=== PATIENT | female | born 1965 | race African-American/Black ===

== ENCOUNTER 2018-12-25 17:57 | Emergency (ER) | payer OTHER ==
[~2018-12-25] VITALS: Ht 165.1 cm; Wt 65.0 kg
[~2018-12-25 17:57] MED LIST: ACET-1757 PO; ALPR0.5T10 PO; BISA10SU13 PR; CARI350T PO; CETI10TA32 PO; CIPR500T87 PO; CITA20TA9 PO; DIVA500T2 PO; DIVA500T4 PO; DOCU-131 PO; FENT1PAT77 TD; GABA600T7 PO; HYDR12.517 PO; LANTUS INJ; LEVO100T PO; LISI-170 PO; LORA-446 PO; MAG355OR14 PO; MAGN400O7 PO; METO10TA82 PO; METO5TAB57 PO; MORP30TA3 PO; MORP30TA81 PO; MULT-108 PO; NICO-586 TD; NOVOLOG INJ; OLME40TA12 PO; OXYC5CAP2 PO; OXYC5TAB3 PO; POTA10TA6 PO; PRAZ1CAP2 PO; PREG150C PO; PROM25AM6 IM; RANI150C PO; SENN1TAB27 PO
[2018-12-25] MEDS ORDERED: PROMETHAZINE 25 MG/ML, 1ML IM ONE (19:00)
[2018-12-25] MEDS ORDERED: ONDANSETRON 2MG/ML, 2ML IVPush ONE (19:00)
[2018-12-25] MEDS ORDERED: SODIUM CHLORIDE 0.9% 1,000ML IVBOLUS ONE (19:00)
--- NOTE | 2018-12-25 19:02 | NUR ---
ATTEMPTED IV X2 UNSUCCESSFUL. PT STILL VOMITING. MD ASSESSING PT REPORT GIVEN TO ONCOMING RN.
[2018-12-25 19:14] LABS: BASOPHILS % (AUTO) 0 % (0-1); EOSINOPHILS % (AUTO) 0 % (1-7); LYMPHOCYTES # (AUTO) 0.97 x10^3/uL (1-3.4); LYMPHOCYTES % (AUTO) 8 % (22-44); MD NO; MEAN CORPUSCULAR HEMOGLOBIN 29.4 pg (27.0-34.8); MEAN CORPUSCULAR HGB CONC 32.9 g/dL (32.4-35.8); MEAN CORPUSCULAR VOLUME 89.6 fL (80-100); MEAN PLATELET VOLUME 8.9 fL (7.4-10.4); MONOCYTES # (AUTO) 0.21 x10^3/uL (0.2-0.8); MONOCYTES % (AUTO) 2 % (2-9); NEUTROPHILS # (AUTO) 11.02 x10^3/uL (1.8-6.8); NEUTROPHILS % (AUTO) 90 % (42-75); PLATELET COUNT 407 x10^3/uL (130-400); RED BLOOD COUNT 4.56 x10^6/uL (3.82-5.3); RED CELL DISTRIBUTION WIDTH 14.4 % (9.6-15.2)
[2018-12-25] MEDS ORDERED: ONDANSETRON 2MG/ML, 2ML ONE (19:20)
[2018-12-25] MEDS ORDERED: PROMETHAZINE 25 MG/ML, 1ML ONE (19:20)
[2018-12-25 19:25] LABS: ALANINE AMINOTRANSFERASE 19 U/L (12-78); ALBUMIN 3.8 g/dL (3.4-5.0); CALCIUM 9.8 mg/dL (8.5-10.1)
[2018-12-25 19:27] LABS: ALKALINE PHOSPHATASE 82 U/L (45-117); BILIRUBIN,TOTAL 0.4 mg/dL (0.2-1.0); TOTAL PROTEIN 8.4 g/dL (6.4-8.2)
[2018-12-25 19:33] LABS: ANION GAP 12 mmol/L (5-15); CHLORIDE 108 mmol/L (98-107)
[2018-12-25] MEDS ORDERED: morphine SULFATE 10 MG/ML, 1ML IVPush ONE (20:00)
[2018-12-25] MEDS ORDERED: MORPHINE SULFATE 4 MG/ML, 1ML ONE (20:26)
[2018-12-25 20:54] LABS: MICROSCOPIC AUTO
[2018-12-25 20:55] LABS: CULTURE INDICATED? NO
--- NOTE | 2018-12-25 21:00 | NUR ---
AT BEDSIDE, PT RESTING
[2018-12-25] MEDS ORDERED: DICYCLOMINE 10 MG/ML, 2ML IM ONE (21:30)
[2018-12-25] MEDS ORDERED: DICYCLOMINE 10 MG/ML, 2ML ONE (21:42)
--- NOTE | 2018-12-25 22:00 | NUR ---
PT GIVEN PO CHALLENGE
[2018-12-25] MEDS ORDERED: POTASSIUM CHLORIDE 20 MEQ TAB.ER.PRT ONE ×2 (22:15→22:19)
[2018-12-25] MEDS ORDERED: METOCLOPRAMIDE 5 MG/ML, 2ML IVPush ONE (22:30)
[2018-12-25] MEDS ORDERED: POTASSIUM CHLORIDE 20 MEQ TAB.ER.PRT PO ONE (22:30)
[2018-12-25] MEDS ORDERED: METOCLOPRAMIDE 5 MG/ML, 2ML ONE (22:35)
--- NOTE | 2018-12-25 22:42 | NUR ---
PT MEDICATED, STILL REQUESTING PAIN MEDS. PO CHALLENGE SUCCESSFUL Addendum: 12/25/18 at 2243 by CANDE PT VOMITING
[2018-12-25] MEDS ORDERED: OXYcodone/APAP 5/325MG TABLET PO ONE (23:30)
[2018-12-25] MEDS ORDERED: OMNIPAQUE 350 MG/ML, 100ML BOTTLE ONE (23:31)
[2018-12-25] MEDS ORDERED: OXYcodone/APAP 5/325MG TABLET ONE (23:32)
[2018-12-26 00:14] VITALS: BP 123/65
== END 2018-12-26 00:18 | disposition home or self-care (01) ==
LOC: ED 18:35
DX: F11.23 Opioid dependence with withdrawal (principal); T40.2X5A Adverse effect of other opioids, initial encounter; E86.0 Dehydration; E87.6 Hypokalemia; R10.84 Generalized abdominal pain; R10.31 Right lower quadrant pain; R10.32 Left lower quadrant pain; Y92.89 Other specified places as the place of occurrence of the external cause
CPT/HCPCS: 36415; 74177; 80053; 81001; 83690; 85025; 93005; 96361; 96372; 96374; 96375; 99284; J0500; J2270; J2405; J2550; J2765; J7030; Q9967

== ENCOUNTER 2019-01-26 16:29 | Inpatient (IN) | payer OTHER ==
[~2019-01-26] VITALS: Ht 165.1 cm; Wt 60.2 kg
[2019-01-26 11:05] VITALS: BP 197/111
[2019-01-26] MEDS ORDERED: LORazepam 2 MG/ML, 1ML IVPush ONE (17:30)
[2019-01-26] MEDS ORDERED: SODIUM CHLORIDE 0.9% 1,000ML IVBOLUS ONE (17:30)
[2019-01-26] MEDS ORDERED: ONDANSETRON 2MG/ML, 2ML IVPush ONE (17:30)
--- NOTE | 2019-01-26 17:30 | NUR ---
MULTIPLE FAILED ATTEMPTS TO GAIN IV ACCESS. DR. PURI NOTIFIED. WILL GIVE IM ATIVAN FOR NAUSEA AND ANXIETY THEN TRY PO HYDRATION.
[2019-01-26] MEDS ORDERED: LORazepam 2 MG/ML, 1ML ONE (17:50)
[2019-01-26 17:57] LABS: PH, VENOUS 7.528 pH (7.320-7.420)
[2019-01-26] MEDS ORDERED: LORazepam 2 MG/ML, 1ML IM ONE (18:00)
[2019-01-26 18:03] LABS: O2 FLOW ROOM AIR L/min
[2019-01-26 18:18] LABS: ALANINE AMINOTRANSFERASE 16 U/L (12-78); ALBUMIN 4.4 g/dL (3.4-5.0); ANION GAP 11 mmol/L (5-15); CALCIUM 10.4 mg/dL (8.5-10.1); CHLORIDE 102 mmol/L (98-107)
[2019-01-26 18:21] LABS: ALKALINE PHOSPHATASE 107 U/L (45-117); BILIRUBIN,TOTAL 1.1 mg/dL (0.2-1.0); CREATININE 1.34 mg/dL (0.55-1.02); TOTAL PROTEIN 9.6 g/dL (6.4-8.2)
[2019-01-26 18:22] LABS: BILIRUBIN, DIRECT 0.2 mg/dL (0.1-0.2); BILIRUBIN,INDIRECT 0.9 mg/dL (0.0-2.0)
[2019-01-26 18:24] LABS: BASOPHILS # (AUTO) 0.02 x10^3/uL (0-0.1); BASOPHILS % (AUTO) 0 % (0-1); EOSINOPHILS # (AUTO) 0.04 x10^3/uL (0-0.4); EOSINOPHILS % (AUTO) 0 % (1-7); LYMPHOCYTES # (AUTO) 0.98 x10^3/uL (1-3.4); LYMPHOCYTES % (AUTO) 6 % (22-44); MD NO; MEAN CORPUSCULAR HEMOGLOBIN 29.2 pg (27.0-34.8); MEAN CORPUSCULAR HGB CONC 32.8 g/dL (32.4-35.8); MEAN CORPUSCULAR VOLUME 88.8 fL (80-100); MEAN PLATELET VOLUME 8.6 fL (7.4-10.4); MONOCYTES # (AUTO) 0.46 x10^3/uL (0.2-0.8); MONOCYTES % (AUTO) 3 % (2-9); NEUTROPHILS # (AUTO) 14.74 x10^3/uL (1.8-6.8); NEUTROPHILS % (AUTO) 91 % (42-75); PLATELET COUNT 366 x10^3/uL (130-400); RED BLOOD COUNT 4.73 x10^6/uL (3.82-5.3); RED CELL DISTRIBUTION WIDTH 13.1 % (9.6-15.2)
[2019-01-26] MEDS ORDERED: INSULIN REGULAR 100 UNITS/ML, 3ML VIAL SQ-INSULIN ONE (19:00)
[2019-01-26 19:02] LABS: ACETONE, SERUM Moderate(40mg/dL) mg/dL (Negative)
[2019-01-26] MEDS ORDERED: PROMETHAZINE 25 MG/ML, 1ML ONE (19:10)
[2019-01-26] MEDS ORDERED: INSULIN LISPRO 100 UNITS/ML, PEN ONE (19:12)
--- NOTE | 2019-01-26 19:23 | NUR ---
PT VOMITTING ALL OVER FLOOR AT THIS TIME AFTER DRINKING [place].
[2019-01-26] MEDS ORDERED: PROMETHAZINE 25 MG/ML, 1ML IM ONE (19:30)
--- NOTE | 2019-01-26 19:36 | NUR ---
TASK RN: PT RESTING IN RNEY W/ EYES CLOSED. EVEN/REGULAR RESPIRATIONS NOTED. PT ARROUSABLE TO LIGHT PHYSICAL STIM. SPO2 MONITORING PLACED. SPO2 >90% ON RA.
[2019-01-26] MEDS ORDERED: LIDOCAINE-MPF 1%, 5ML ONE (20:27)
[2019-01-26] MEDS ORDERED: ONDANSETRON 2MG/ML, 2ML ONE (20:28)
--- NOTE | 2019-01-26 20:43 | NUR ---
IO PLACED IN PT'S LEFT HUMEROUS DUE TO INABILITY TO OBTAIN PIV, LIDOCAINE USED TO FLUSH. PT SEEMED TO TOLERATE WELL. IV FLUIDS INFUSING WITH PRESSURE BAG.
[2019-01-26] MEDS ORDERED: HYDROmorphone 1 MG/ML, 1ML AMP ONE (21:16)
--- NOTE | 2019-01-26 21:24 | NUR ---
PT CONT TO DRINK FROM THE SINK AND PUT HER FINGERS DOWN HER THROAT TO INDUCE VOMITTING. PT VOMITED ALL OVER FLOOR NEXT TO ARIANE.
[2019-01-26] MEDS ORDERED: HYDROmorphone 2 MG/ML, 1ML IVPush ONE (21:30)
[2019-01-26] MEDS ORDERED: POTASSIUM CHLORIDE 20 MEQ in SODIUM CHLORIDE 0.9% 1,000 ML IV ONE (21:58)
[2019-01-26] MEDS ORDERED: ONDANSETRON 2MG/ML, 2ML IVPush PRN (22:00)
[2019-01-26] MEDS ORDERED: SODIUM CHLORIDE FLUSH 10ML SYR IVF PRN (22:00)
[2019-01-26 23:20] VITALS: BP 157/110
--- NOTE | 2019-01-26 23:23 | NUR ---
KERRIE HENDERSON-Fall Risk Medications NOT present and NOT receiving anticoagulants.
[2019-01-26] MEDS ORDERED: INSULIN LISPRO 100 UNITS/ML, PEN SQ-INSULIN SCH (23:30)
[2019-01-26] MEDS ORDERED: ALUMINUM/MAG/SIMETHICONE 30 ML UDC PO PRN (23:30)
[2019-01-26 23:35] VITALS: BP 191/115
[2019-01-26 23:50] VITALS: BP 209/100
[2019-01-27] VITALS (13 sets, daily range): BP systolic 118–201; BP diastolic 73–126
[2019-01-27] MEDS: ONDANSETRON 2MG/ML, 2ML IVPush PRN ×3 (00:29→21:24)
[2019-01-27] MEDS: LISINOPRIL 20 MG TABLET PO SCH ×2 (01:23→08:43)
[2019-01-27] MEDS: INSULIN GLARGINE 100 UNITS/ML, PEN SQ-INSULIN SCH ×2 (01:24→21:42)
[2019-01-27 03:42] LABS: MICROSCOPIC AUTO
[2019-01-27 03:43] LABS: CULTURE INDICATED? NO
[2019-01-27] MEDS: LABETALOL 5 MG/ML SYRINGE IVPush PRN ×2 (04:20→12:34)
[2019-01-27] MEDS: METOCLOPRAMIDE 5 MG/ML, 2ML IVPush PRN (04:23)
[2019-01-27] MEDS: D5%-0.9% NACL 1,000 ML IV SCH ×2 (04:41→23:50)
[2019-01-27] MEDS: INSULIN LISPRO 100 UNITS/ML, PEN SQ-INSULIN SCH ×5 (05:17→21:42)
[2019-01-27 05:25] LABS: BASOPHILS # (AUTO) 0.02 x10^3/uL (0-0.1); BASOPHILS % (AUTO) 0 % (0-1); EOSINOPHILS % (AUTO) 0 % (1-7); LYMPHOCYTES # (AUTO) 0.83 x10^3/uL (1-3.4); LYMPHOCYTES % (AUTO) 5 % (22-44); MD NO; MEAN CORPUSCULAR HEMOGLOBIN 28.8 pg (27.0-34.8); MEAN CORPUSCULAR VOLUME 87.5 fL (80-100); MEAN PLATELET VOLUME 8.4 fL (7.4-10.4); MONOCYTES # (AUTO) 0.48 x10^3/uL (0.2-0.8); MONOCYTES % (AUTO) 3 % (2-9); NEUTROPHILS # (AUTO) 14.89 x10^3/uL (1.8-6.8); NEUTROPHILS % (AUTO) 92 % (42-75); PLATELET COUNT 387 x10^3/uL (130-400); RED BLOOD COUNT 4.71 x10^6/uL (3.82-5.3); RED CELL DISTRIBUTION WIDTH 13.3 % (9.6-15.2)
[2019-01-27 05:42] LABS: ALBUMIN 4.1 g/dL (3.4-5.0); ANION GAP 12 mmol/L (5-15); CALCIUM 10.1 mg/dL (8.5-10.1); CHLORIDE 104 mmol/L (98-107)
[2019-01-27 05:45] LABS: ALANINE AMINOTRANSFERASE 18 U/L (12-78); ALKALINE PHOSPHATASE 101 U/L (45-117); BILIRUBIN,TOTAL 1.4 mg/dL (0.2-1.0); CREATININE 1.16 mg/dL (0.55-1.02); TOTAL PROTEIN 9.3 g/dL (6.4-8.2)
[2019-01-27 05:49] LABS: ACETONE, SERUM Moderate(40mg/dL) mg/dL (Negative)
[2019-01-27] MEDS: LEVOTHYROXINE 100 MCG TABLET PO SCH (06:00)
[2019-01-27] MEDS: PANTOPRAZOLE 40 MG IV IVPush SCH ×2 (06:37→08:43)
[2019-01-27] MEDS: PROMETHAZINE 25 MG/ML, 1ML IM PRN ×2 (07:30→17:42)
[2019-01-27] MEDS: GABAPENTIN 300 MG CAPSULE PO SCH ×3 (08:43→21:25)
[2019-01-27] MEDS: PRAZOSIN 1 MG CAPSULE PO SCH ×2 (09:17→21:25)
[2019-01-27] MEDS ORDERED: D5%-0.45% NACL 1,000 ML IV SCH (14:12)
[2019-01-27] MEDS: CEFTRIAXONE PMX 2GM/50ML 50 ML IV SCH (14:32)
[2019-01-27] MEDS: OXYcodone 5 MG/5 ML ORAL.SOL UDC PO PRN (17:04)
[2019-01-27] MEDS: PANTOPROZOLE 40MG TABLET PO SCH (21:25)
[2019-01-28] VITALS (10 sets, daily range): BP systolic 87–194; BP diastolic 57–107
[2019-01-28] MEDS: INSULIN LISPRO 100 UNITS/ML, PEN SQ-INSULIN SCH ×6 (00:57→21:27)
[2019-01-28] MEDS: PROMETHAZINE 25 MG/ML, 1ML IM PRN ×3 (01:28→17:09)
[2019-01-28] MEDS: OXYcodone 5 MG/5 ML ORAL.SOL UDC PO PRN ×3 (02:14→18:18)
[2019-01-28] MEDS: ONDANSETRON 2MG/ML, 2ML IVPush PRN ×2 (03:26→12:39)
[2019-01-28 05:24] LABS: BASOPHILS # (AUTO) 0.05 x10^3/uL (0-0.1); BASOPHILS % (AUTO) 0 % (0-1); EOSINOPHILS # (AUTO) 0.02 x10^3/uL (0-0.4); EOSINOPHILS % (AUTO) 0 % (1-7); LYMPHOCYTES # (AUTO) 1.88 x10^3/uL (1-3.4); LYMPHOCYTES % (AUTO) 12 % (22-44); MD NO; MEAN CORPUSCULAR HEMOGLOBIN 28.7 pg (27.0-34.8); MEAN CORPUSCULAR HGB CONC 32.7 g/dL (32.4-35.8); MEAN CORPUSCULAR VOLUME 87.9 fL (80-100); MEAN PLATELET VOLUME 8.5 fL (7.4-10.4); MONOCYTES # (AUTO) 0.73 x10^3/uL (0.2-0.8); MONOCYTES % (AUTO) 5 % (2-9); NEUTROPHILS # (AUTO) 12.45 x10^3/uL (1.8-6.8); NEUTROPHILS % (AUTO) 82 % (42-75); PLATELET COUNT 363 x10^3/uL (130-400); RED BLOOD COUNT 4.74 x10^6/uL (3.82-5.3); RED CELL DISTRIBUTION WIDTH 13.4 % (9.6-15.2)
[2019-01-28] MEDS: METOCLOPRAMIDE 5 MG/ML, 2ML IVPush PRN (06:40)
[2019-01-28] MEDS: PANTOPROZOLE 40MG TABLET PO SCH ×2 (06:40→17:07)
[2019-01-28] MEDS: LEVOTHYROXINE 100 MCG TABLET PO SCH (06:40)
[2019-01-28] MEDS: GABAPENTIN 300 MG CAPSULE PO SCH ×3 (08:49→20:58)
[2019-01-28] MEDS: LISINOPRIL 20 MG TABLET PO SCH ×2 (08:49→08:50)
[2019-01-28] MEDS: PRAZOSIN 1 MG CAPSULE PO SCH ×2 (08:50→20:59)
[2019-01-28] MEDS ORDERED: ENOXAPARIN 30 MG/0.3 ML SQ SCH (09:00)
[2019-01-28] MEDS ORDERED: METOPROLOL TARTRATE 50 MG TABLET PO ONE (11:30)
[2019-01-28] MEDS: ACETAMINOPHEN 325 MG TABLET PO PRN ×2 (11:34→15:17)
[2019-01-28] MEDS ORDERED: SODIUM CHLORIDE 0.9% 1,000 ML IV SCH (14:30)
[2019-01-28] MEDS: CEFTRIAXONE PMX 2GM/50ML 50 ML IV SCH (14:53)
[2019-01-28] MEDS ORDERED: DEXTROSE 50%, 50ML SYRINGE IVPush PRN (15:00)
[2019-01-28] MEDS ORDERED: GLUCAGON 1 MG IM PRN (15:00)
[2019-01-28] MEDS ORDERED: DEXTROSE 4 GM TAB.CHEW PO PRN (15:00)
[2019-01-28 15:18] LABS: TROPONIN I < 0.015 ng/mL (0.000-0.045)
[2019-01-28] MEDS: METOCLOPRAMIDE 5 MG/ML, 2ML IVPush SCH ×2 (15:23→21:08)
[2019-01-28] MEDS: METOPROLOL TARTRATE 50 MG TABLET PO SCH (17:13)
[2019-01-28 17:41] LABS: RAPID INFLUENZA A Negative (Negative); RAPID INFLUENZA B Negative (Negative)
[2019-01-28] MEDS ORDERED: METOPROLOL TARTRATE 50 MG TABLET PO SCH (18:00)
[2019-01-28] MEDS: D5%-0.45% NACL 1,000 ML IV SCH (20:58)
[2019-01-28] MEDS: SODIUM CHLORIDE FLUSH 10ML SYR IVF SCH (20:59)
[2019-01-28 21:20] LABS: TROPONIN I < 0.015 ng/mL (0.000-0.045)
[2019-01-28] MEDS: INSULIN GLARGINE 100 UNITS/ML, PEN SQ-INSULIN SCH (21:27)
[2019-01-28] MEDS ORDERED: SODIUM CHLORIDE 0.9%, 500ML IVBOLUS ONE (22:30)
[2019-01-29] VITALS (14 sets, daily range): BP systolic 95–196; BP diastolic 62–109
[2019-01-29] MEDS: PROMETHAZINE 25 MG/ML, 1ML IM PRN (00:05)
[2019-01-29] MEDS: LABETALOL 5 MG/ML SYRINGE IVPush PRN ×2 (01:53→20:57)
--- NOTE | 2019-01-29 01:54 | NUR ---
KERRIE HENDERSON - Fall Risk Medications present and NOT receiving anticoagulants.
[2019-01-29] MEDS: INSULIN LISPRO 100 UNITS/ML, PEN SQ-INSULIN SCH ×5 (03:24→21:23)
[2019-01-29 03:47] LABS: TROPONIN I < 0.015 ng/mL (0.000-0.045)
[2019-01-29] MEDS: METOCLOPRAMIDE 5 MG/ML, 2ML IVPush SCH ×3 (04:30→17:19)
[2019-01-29] MEDS: OXYcodone 5 MG/5 ML ORAL.SOL UDC PO PRN ×3 (04:59→17:19)
[2019-01-29 06:09] LABS: CHLORIDE 103 mmol/L (98-107)
[2019-01-29 06:16] LABS: BASOPHILS # (AUTO) 0.03 x10^3/uL (0-0.1); BASOPHILS % (AUTO) 0 % (0-1); EOSINOPHILS # (AUTO) 0.02 x10^3/uL (0-0.4); EOSINOPHILS % (AUTO) 0 % (1-7); LYMPHOCYTES # (AUTO) 1.68 x10^3/uL (1-3.4); LYMPHOCYTES % (AUTO) 16 % (22-44); MD NO; MEAN CORPUSCULAR HEMOGLOBIN 28.9 pg (27.0-34.8); MEAN CORPUSCULAR HGB CONC 32.8 g/dL (32.4-35.8); MEAN CORPUSCULAR VOLUME 88.2 fL (80-100); MEAN PLATELET VOLUME 8.4 fL (7.4-10.4); MONOCYTES # (AUTO) 0.64 x10^3/uL (0.2-0.8); MONOCYTES % (AUTO) 6 % (2-9); NEUTROPHILS # (AUTO) 8.23 x10^3/uL (1.8-6.8); NEUTROPHILS % (AUTO) 78 % (42-75); PLATELET COUNT 410 x10^3/uL (130-400); RED BLOOD COUNT 4.38 x10^6/uL (3.82-5.3); RED CELL DISTRIBUTION WIDTH 13.1 % (9.6-15.2)
[2019-01-29 06:19] LABS: ALANINE AMINOTRANSFERASE 17 U/L (12-78); ALBUMIN 3.4 g/dL (3.4-5.0); ALKALINE PHOSPHATASE 87 U/L (45-117); ANION GAP 10 mmol/L (5-15); BILIRUBIN,TOTAL 1.5 mg/dL (0.2-1.0); CALCIUM 8.7 mg/dL (8.5-10.1); CREATININE 1.27 mg/dL (0.55-1.02); TOTAL PROTEIN 7.9 g/dL (6.4-8.2)
[2019-01-29] MEDS: METOPROLOL TARTRATE 50 MG TABLET PO SCH ×2 (06:29→17:19)
[2019-01-29] MEDS: PANTOPROZOLE 40MG TABLET PO SCH ×2 (06:29→16:17)
[2019-01-29] MEDS: LEVOTHYROXINE 100 MCG TABLET PO SCH (06:30)
[2019-01-29] MEDS: ENOXAPARIN 40 MG/0.4 ML SQ SCH (09:10)
[2019-01-29] MEDS: PRAZOSIN 1 MG CAPSULE PO SCH ×2 (09:11→20:42)
[2019-01-29] MEDS: ACETAMINOPHEN 325 MG TABLET PO PRN (09:11)
[2019-01-29] MEDS: SODIUM CHLORIDE FLUSH 10ML SYR IVF SCH ×2 (09:11→20:57)
[2019-01-29] MEDS: LISINOPRIL 20 MG TABLET PO SCH (09:11)
[2019-01-29] MEDS: GABAPENTIN 300 MG CAPSULE PO SCH ×3 (09:11→20:43)
[2019-01-29] MEDS: ONDANSETRON 2MG/ML, 2ML IVPush PRN ×2 (09:14→20:23)
[2019-01-29] MEDS: D5%-0.45% NACL 1,000 ML IV SCH (10:00)
[2019-01-29] MEDS: SODIUM CHLORIDE 0.9% 1,000 ML IV SCH (14:33)
[2019-01-29] MEDS: CEFTRIAXONE PMX 2GM/50ML 50 ML IV SCH (15:10)
[2019-01-29] MEDS: INSULIN GLARGINE 100 UNITS/ML, PEN SQ-INSULIN SCH (21:23)
[2019-01-30] MEDS: METOCLOPRAMIDE 5 MG/ML, 2ML IVPush SCH ×4 (00:39→18:08)
[2019-01-30] MEDS: SODIUM CHLORIDE 0.9% 1,000 ML IV SCH ×3 (00:40→20:41)
[2019-01-30 03:35] VITALS: BP 112/71
[2019-01-30] MEDS: OXYcodone 5 MG/5 ML ORAL.SOL UDC PO PRN ×3 (03:48→18:19)
[2019-01-30 05:14] LABS: CHLORIDE 106 mmol/L (98-107)
[2019-01-30 05:20] LABS: ALANINE AMINOTRANSFERASE 15 U/L (12-78); ALKALINE PHOSPHATASE 74 U/L (45-117); ANION GAP 9 mmol/L (5-15); BILIRUBIN,TOTAL 0.7 mg/dL (0.2-1.0); CALCIUM 8.4 mg/dL (8.5-10.1); CREATININE 1.72 mg/dL (0.55-1.02)
[2019-01-30] MEDS: METOPROLOL TARTRATE 50 MG TABLET PO SCH ×2 (06:29→18:08)
[2019-01-30] MEDS: LEVOTHYROXINE 100 MCG TABLET PO SCH (06:29)
[2019-01-30] MEDS: PANTOPROZOLE 40MG TABLET PO SCH ×2 (06:36→18:18)
[2019-01-30 06:49] LABS: MEAN CORPUSCULAR HEMOGLOBIN 28.7 pg (27.0-34.8); MEAN CORPUSCULAR HGB CONC 32.6 g/dL (32.4-35.8); MEAN CORPUSCULAR VOLUME 88.1 fL (80-100); MEAN PLATELET VOLUME 8.5 fL (7.4-10.4); PLATELET COUNT 364 x10^3/uL (130-400); RED BLOOD COUNT 4.24 x10^6/uL (3.82-5.3); RED CELL DISTRIBUTION WIDTH 13.4 % (9.6-15.2)
[2019-01-30 07:30] LABS: MD YES
[2019-01-30 07:34] LABS: <PLATELET ESTIMATE> ADEQUATE; <RBC MORPHOLOGY> NORMAL; EOS#(MANUAL) 0.32 x10^3/uL (0.0-0.4); EOS% (MANUAL) 4 % (1-7); LARGE PLATELETS 1+; LYMPH#(MANUAL) 3.92 x10^3/uL (1-3.4); LYMPHS% (MANUAL) 49 % (22-44); MONOS% (MANUAL) 5 % (2-9); SEG#(MANUAL) 3.36 x10^3/uL (1.8-6.8); SEGS% (MANUAL) 42 % (42-75)
[2019-01-30 07:40] VITALS: BP 107/71
[2019-01-30] MEDS: GABAPENTIN 300 MG CAPSULE PO SCH ×3 (07:55→20:36)
[2019-01-30] MEDS: PRAZOSIN 1 MG CAPSULE PO SCH ×2 (07:56→20:36)
[2019-01-30] MEDS: LISINOPRIL 10 MG TABLET PO SCH (07:56)
[2019-01-30] MEDS: SODIUM CHLORIDE FLUSH 10ML SYR IVF SCH ×2 (07:58→20:37)
[2019-01-30 07:59] VITALS: BP 126/78
[2019-01-30] MEDS: INSULIN LISPRO 100 UNITS/ML, PEN SQ-INSULIN SCH ×4 (08:05→20:51)
[2019-01-30] MEDS: ENOXAPARIN 40 MG/0.4 ML SQ SCH (10:19)
[2019-01-30 13:23] VITALS: BP 100/61
[2019-01-30] MEDS: CEFTRIAXONE PMX 2GM/50ML 50 ML IV SCH (15:01)
[2019-01-30 18:28] VITALS: BP 130/79
[2019-01-30] MEDS: INSULIN GLARGINE 100 UNITS/ML, PEN SQ-INSULIN SCH (20:51)
[2019-01-31] MEDS: METOCLOPRAMIDE 5 MG/ML, 2ML IVPush SCH ×3 (00:49→13:03)
[2019-01-31] MEDS: OXYcodone 5 MG/5 ML ORAL.SOL UDC PO PRN ×3 (00:49→13:40)
[2019-01-31 01:58] VITALS: BP 156/82
[2019-01-31] MEDS: SODIUM CHLORIDE 0.9% 1,000 ML IV SCH (07:25)
[2019-01-31] MEDS: METOPROLOL TARTRATE 50 MG TABLET PO SCH (07:26)
[2019-01-31] MEDS: PANTOPROZOLE 40MG TABLET PO SCH (07:27)
[2019-01-31] MEDS: LEVOTHYROXINE 100 MCG TABLET PO SCH (07:27)
[2019-01-31 07:59] VITALS: BP 152/79
[2019-01-31] MEDS: PRAZOSIN 1 MG CAPSULE PO SCH (08:54)
[2019-01-31] MEDS: ENOXAPARIN 40 MG/0.4 ML SQ SCH (08:55)
[2019-01-31] MEDS: GABAPENTIN 300 MG CAPSULE PO SCH (08:55)
[2019-01-31] MEDS: SODIUM CHLORIDE FLUSH 10ML SYR IVF SCH (08:55)
[2019-01-31] MEDS: LISINOPRIL 10 MG TABLET PO SCH (08:55)
[2019-01-31] MEDS: INSULIN LISPRO 100 UNITS/ML, PEN SQ-INSULIN SCH ×3 (09:47→13:40)
[2019-01-31 12:57] VITALS: BP 170/99
[2019-01-31] MEDS ORDERED: METO50TA82 PO (13:51)
[2019-01-31] MEDS: CEFTRIAXONE PMX 2GM/50ML 50 ML IV SCH (14:00)
== END 2019-01-31 16:45 | disposition home or self-care (01) | DRG 444 ==
LOC: ED 18:26 → EDIP 21:58 → 3NE 22:40 → 5SO 01-27 02:35 → DCLOUNGE 01-31 16:36
PROVIDERS: ADMIT Internal Medicine; ATTEND Internal Medicine
DX: K80.20 Calculus of gallbladder without cholecystitis without obstruction (principal); R65.11 Systemic inflammatory response syndrome (SIRS) of non-infectious origin with acute organ dysfunction; N17.9 Acute kidney failure, unspecified; F11.23 Opioid dependence with withdrawal; E86.1 Hypovolemia; I10 Essential (primary) hypertension; E10.9 Type 1 diabetes mellitus without complications; E03.9 Hypothyroidism, unspecified; F17.200 Nicotine dependence, unspecified, uncomplicated; F41.9 Anxiety disorder, unspecified; M79.7 Fibromyalgia; Z79.4 Long term (current) use of insulin; Z90.710 Acquired absence of both cervix and uterus; Z88.0 Allergy status to penicillin; Z88.8 Allergy status to other drugs, medicaments and biological substances
CPT/HCPCS: 36415; 36600; 70450; 71045; 76700; 80048; 80053; 80076; 81001; 82010; 82040; 82803; 82947; 82962; 83605; 83735; 84484; 85025; 87040; 87400; 93005; 96372; 96374; G0378; J0696; J1170; J1650; J2405; J2550; J7042; C9113; J1815; J2060; J2765; J7030; J7040